=== PATIENT | female | born 1970 | race Two or more races ===

== ENCOUNTER 2025-03-13 16:01 | Emergency (ER) | payer MEDICAID, OTHER, SELFPAY ==
--- NOTE | ~2025-03-13 | XR_ITS ---
CLINICAL HISTORY: pain 2 view chest x-ray. Comparison: None Findings: No consolidation or effusion. Cardiac and mediastinal contours are unremarkable. Bones unremarkable. Impression: 1. No acute pulmonary disease. This document has been electronically signed by: Jose Guadalupe Johnson MD on 03/13/2025 17:33:57
--- NOTE | 2025-03-13 16:55 | ED.GENADULT ---
[facility] - General Adult General Chief complaint: Chest Pain Stated complaint: right side pain Time Seen by Provider: 03/13/25 19:30 Source: patient Mode of arrival: ambulatory Limitations: no limitations History of Present Illness ED Provider: Dr. Morgan [facility] narrative: 54-year-old female no medical history presented hospital today for left-sided chest pain has been going on for a week now. Patient was sent in by urgent Care for further evaluation and cardiac workup. The patient is described as a sharp intermittent pain on the left axilla. Denies any shortness of breath. Denies any coughing fever. She stated it feels like electrical shock. The pain persist therefore she presents to the ER for evaluation no history of cardiac problem. Related Data Previous Rx's ?Medication ?Instructions ?Recorded acetaminophen 500 mg tablet 1,000 mg (2 x 500 mg) PO Q8H 10 03/13/25 days #60 tabs lidocaine 4 % topical patch 1 patch topical DAILY PRN pain #15 03/13/25 (AsperFlex (lidocaine)) ea Allergies Allergy/AdvReac Type Severity Reaction Status Date / Time diclofenac Allergy Unknown Unknown Verified 03/13/25 17:02 Review of Systems Review of Systems: Pertinent review of systems as mentioned in HPI. All other system otherwise negative. [facility] Past Medical History [facility] Narrative: Medical history as mentioned in HPI Social History Social History Smoked in Last 30 Days: No Use of substances other than those prescribed or required for medical reasons: No Advance Directives: No Advance Directives Information Provided: No Physical Exam ED Exam Exam: General: Pleasant, no distress, interacting appropriately Head: Normacephalic, atraumatic ENT: oral mucosa moist, neck supple, no tracheal deviation Cardiovascular: regular rate, regular rhythm, no murmurs, rubbing, gallops, no breast lumps on exam. Reproducible chest wall tenderness on the left axilla Respiratory: CTAB, no wheeze, rales, rhonchi Neurological: Awake and alert, no facial droop noted Skin: Warm and dry Psychiatric: Appropriate mood and thoughts Vital Signs: Vital Signs - 24 hr 03/13/25 16:58 03/13/25 18:34 03/13/25 20:21 Temperature 97.5 F 97.8 F Pulse Rate 83 76 66 Respiratory Rate 18 11 L Blood Pressure 158/90 H 175/95 H 155/94 H Pulse Oximetry 99 97 Oxygen Delivery Method Room Air Room Air 03/13/25 21:56 Temperature 0 F L Pulse Rate 66 Respiratory Rate 16 Blood Pressure 155/94 H Pulse Oximetry 98 Oxygen Delivery Method BMI result Body Mass Index 31.0 Course Course Course Narrative: This is a rapid medical exam performed by Kerrie Lara NP: Additional HPI, ROS, PE not included below will be deferred to primary provider. Patient is a 54y/o Azeri speaking female presenting with complaint of left sided rib and breast pain. Seen at urgent care [facility] and referred to the ED. Plan: EKG, labs, CXR Medical Decision Making Medical Decision Making [facility] Narrative: 54-year-old female no medical history presented hospital today for left-sided chest pain for the past week. Intermittent and sharp in nature. Reproducible on exam. The patient has a heart score of 1. EKG did not show any signs of STEMI. Troponins negative. Chest x-ray is clear. The patient chest pain is reproducible on exam. I suspect this is musculoskeletal in nature. Patient is low risk based on heart score. Patient will be discharged home. Referral to primary care doctor will be provided the patient. Differential Diagnosis Differential Diagnoses: The differential diagnosis associated with the presentation includes STEMI, ACS, chest wall tenderness, costochondritis, pneumonia Lab Data [facility] Lab Attestation statement: I reviewed the patient's lab results. 03/13/25 17:12 03/13/25 17:12 Labs: Lab Results 03/13/25 03/13/25 Range/Units 17:12 21:08 WBC 8.7 (4.8-10.8) X10*3/uL RBC 4.93 (4.20-5.50) X10*6/uL Hgb 14.2 (12.0-16.0) g/dl Hct 43.3 (37.0-47.0) % MCV 87.8 (80.0-98.0) fL MCH 28.8 (27.0-33.0) pg MCHC 32.8 (31.0-35.0) g/dl RDW 13.8 (11.0-16.0) % Plt Count 301 (160-400) X10*3/uL MPV 11.2 (9.4-12.3) fL Immature Gran % (Auto) 0.2 (0.0-0.4) % Neut % (Auto) 59.4 (45-73) % Lymph % (Auto) 30.0 (20-40) % Wetzel % (Auto) 7.4 (2-11) % Eos % (Auto) 2.5 (0-4) % Baso % (Auto) 0.5 (0-2) % Lymph # (Auto) 2.6 (1.2-4.9) X10*3/uL Wetzel # (Auto) 0.6 (0.1-1.2) X10*3/uL Eos # (Auto) 0.2 (0.0-0.4) X10*3/uL Baso # (Auto) 0.0 (0.0-0.2) X10*3/uL Abs Immat Gran (auto) 0.02 (0.00-0.03) X10*3/uL Absolute Neuts (auto) 5.2 (2.0-8.3) x10*3/uL Absolute Nucleated RBC 0.000 (0.0-0.012) X10*3/uL Nucleated RBC % (auto) 0.0 (0.0-0.2) /100WBC PT 13.5 (11.2-13.5) SEC INR 1.1 (0.9-1.1) Sodium 142 (135-145) mmol/L Potassium 3.9 (3.3-5.1) mmol/L Chloride 107 (96-108) mmol/L Carbon Dioxide 25 (22-29) mmol/L Anion Gap 14 (12-20) BUN 11 (9-16) mg/dL Creatinine 0.87 (0.5-1.4) mg/dL Estim Creat Clear Calc 83.1 Estimated GFR > 60 Random Glucose 131 H (60-115) mg/dL Calcium 9.6 (8.4-10.2) mg/dL Total Bilirubin 0.3 (0.0-1.0) mg/dL AST 20 (5-31) U/L ALT 19 (0-31) U/L Alkaline Phosphatase 130 H (39-117) U/L Troponin I High Sens < 2.7 (<3.5-17.0) ng/L Total Protein 8.4 H (6.5-8.0) g/dL Albumin 4.9 (3.5-5.0) g/dL COVID-19 ([facility]) Negative (Negative) COVID-19 Clin Com See Note Influenza Type A ([facility]) Negative (Negative) Influenza Type B ([facility]) Negative (Negative) Influenza A & B Note See Note Independent Interpretation I performed an independent interpretation of an: EKG and Plain X-Ray Radiology Impression Discussion of test interpretation with radiology: I have reviewed the radiologist's reading. Scores Heart Score History: -0- slightly suspicious ECG: -0- normal Age: -1- >45 - <65 Risk factory: -0- no risk factors known Troponin: -0- < or = normal limit Score: 1 Risk: 1.7% Discharge Plan Discharge Clinical Impression: Atypical chest pain Patient Disposition: Home, Self-Care Instructions: Chest Wall Pain (ED) Additional Instructions: Take 1000mg tylenol every 8 hours. Follow up with the primary care doctor. If anything changes return to ED. I do not think your chest pain is from a cardiac source today. Prescriptions: New acetaminophen 500 mg tablet 1,000 mg PO Q8H 10 Days Qty: 60 0RF lidocaine [AsperFlex (lidocaine)] 4 % adhesive patch,medicated 1 patch topical DAILY PRN (Reason: pain) Qty: 15 0RF Referrals: [facility] Care, [facility] [Provider Group, Internal Medicine] Interventions: ED Discharge Assessment Last Done: 03/13/25 21:56 Discharge Date/Time: 03/13/25 21:57 Print Language: Azeri
[2025-03-13 16:58] VITALS: BP 158/90; PULSE 83; RESP 18; TEMP 36.4; O2SAT 99; BMI 31.0
--- NOTE | 2025-03-13 17:03 | ECG_ITS ---
Test Reason : CP Blood Pressure : */* mmHG Vent. Rate : 68 BPM Atrial Rate : 68 BPM P-R Int : 130 ms QRS Dur : 82 ms QT Int : 386 ms P-R-T Axes : 31 44 17 degrees QTcB Int : 410 ms Normal sinus rhythm Normal ECG No previous ECGs available Referred By: Brittney Lara Electronically Signed By: RENETTA HEATH MD
[2025-03-13 17:16] LABS: MANUAL DIFF FLAG NO
[2025-03-13 17:18] LABS: Hematocrit 43.3 % (37.0-47.0); Hemoglobin 14.2 g/dl (12.0-16.0); Imm Gran Abs Auto 0.02 X10*3/uL (0.00-0.03); Imm Gran Pct Auto 0.2 % (0.0-0.4); Lymphocytes Absolute Auto 2.6 X10*3/uL (1.2-4.9); Mean Corpuscular HGB Conc 32.8 g/dl (31.0-35.0); Mean Corpuscular Hemoglobin 28.8 pg (27.0-33.0); Mean Corpuscular Volume 87.8 fL (80.0-98.0); NRBC Abs Auto 0.000 X10*3/uL (0.0-0.012); NRBC Pct Auto 0.0 /100WBC (0.0-0.2); Platelet Count 301 X10*3/uL (160-400); Red Blood Count 4.93 X10*6/uL (4.20-5.50); White Blood Count 8.7 X10*3/uL (4.8-10.8)
[2025-03-13 17:25] LABS: INTERNATIONAL NORM RATIO 1.1 (0.9-1.1); Prothrombin Time 13.5 SEC (11.2-13.5)
[2025-03-13 17:35] LABS: Alanine Aminotransferase 19 U/L (0-31); Albumin Level 4.9 g/dL (3.5-5.0); Alkaline Phosphatase 130 U/L (39-117); Anion Gap 14 (12-20); Aspartate Amino Transferase 20 U/L (5-31); Blood Urea Nitrogen 11 mg/dL (9-16); Calcium 9.6 mg/dL (8.4-10.2); Carbon Dioxide 25 mmol/L (22-29); Chloride 107 mmol/L (96-108); Creatinine Clr Calc Pharmacy 83.1; Estimated Glomerular Filt Rate > 60; Potassium 3.9 mmol/L (3.3-5.1); Sodium 142 mmol/L (135-145); Total Protein 8.4 g/dL (6.5-8.0)
[2025-03-13 17:43] LABS: Troponin-I High Sensitivity < 2.7 ng/L (<3.5-17.0)
--- NOTE | 2025-03-13 18:31 | PC.NURSE ---
Pt roomed and placed on full monitor - vss states CP left side under arm radiating to neck x5 months intermittently but now past few days it has been constant, she states she feels palpitations and lightheaded.
--- NOTE | 2025-03-13 18:32 | PC.NURSE ---
NSR on full monitor no ectopy.
[2025-03-13 18:34] VITALS: BP 175/95; PULSE 76; RESP 11; TEMP 36.6; O2SAT 97
[2025-03-13 20:21] VITALS: BP 155/94; PULSE 66
[2025-03-13 21:44] LABS: COVID-19 Test Negative (Negative); IDNOW Serial# 152EDE1D; IDNOW Serial# 16C4AD1C; Influenza B2 Negative (Negative)
[2025-03-13 21:56] VITALS: BP 155/94; PULSE 66; RESP 16; TEMP -17.7; TEMP 0; O2SAT 98
== END 2025-03-13 21:57 | disposition home or self-care (01) ==
PROVIDERS: Registered Nurse Emergency; Emergency Provider Student in an Organized Health Care Education/Training Program
DX: R07.89 Other chest pain (principal); Z03.818 Encounter for observation for suspected exposure to other biological agents ruled out
CPT/HCPCS: 36415; 71046; 80053; 84484; 85025; 85610; 87502; 87635; 93005; 99284; 99285

== ENCOUNTER → 2025-03-13 17:03 | Outpatient (BNV) | payer MEDICAID, SELFPAY | PROVIDERS: Emergency Provider Student in an Organized Health Care Education/Training Program; Visit Provider Internal Medicine Cardiovascular Disease | DX: R07.9 Chest pain, unspecified (principal) | CPT/HCPCS: 93010 ==

== ENCOUNTER → 2025-03-13 17:03 | Outpatient (BNV) | payer SELFPAY | PROVIDERS: Visit Provider Radiology Diagnostic Radiology | DX: R07.89 Other chest pain (principal) | CPT/HCPCS: 71046 ==